=== PATIENT | male | born 1975 | race Hispanic/Latino ===

== ENCOUNTER 2016-10-09 22:16 | Emergency (ER) | payer SELFPAY ==
[2016-10-09] MEDS ORDERED: TORADOL IV ONE (22:43)
[2016-10-10 02:33] VITALS: BP 139/91
[2016-10-10 06:25] LABS: Bilirubin,Urine NEG (Negative); Blood,Urine LG (Negative); Ketones,Urine NEG (Negative); Leukocyte Esterase,Urine NEG (Negative); Mucus,Urine 2+ /HPF; Nitrite,Urine NEG (Negative); Urobilinogen,Urine < 2.0 mg/dL (<2.0)
== END 2016-10-10 02:35 | disposition left against medical advice (07) ==
LOC: ED 22:16
DX: R10.30 Lower abdominal pain, unspecified (principal); Z53.21 Procedure and treatment not carried out due to patient leaving prior to being seen by health care provider
CPT/HCPCS: 81001; J1885